=== PATIENT | male | born 2005 | race Caucasian/White ===

== ENCOUNTER 2025-07-03 21:10 | Emergency (ER) | payer OTHER ==
[~2025-07-03] VITALS: Ht 180.3 cm; Wt 83.9 kg
[2025-07-03 21:36] VITALS: BP 126/70; TEMP 98.4; O2SAT 98
[2025-07-03] MEDS ORDERED: HYDR-3972 PO (22:20)
[2025-07-03] MEDS ORDERED: HYDROCODONE/APAP 5/325MG TABLET ONE (22:22)
[2025-07-03] MEDS: HYDROCODONE/APAP 5/325MG TABLET PO ONE (22:24)
== END 2025-07-03 22:36 | disposition home or self-care (01) ==
LOC: ER 21:31
DX: S62.337A Displaced fracture of neck of fifth metacarpal bone, left hand, initial encounter for closed fracture (principal); S63.502A Unspecified sprain of left wrist, initial encounter; W22.01XA Walked into wall, initial encounter; Y93.89 Activity, other specified; Y92.89 Other specified places as the place of occurrence of the external cause; Y99.9 Unspecified external cause status
CPT/HCPCS: 73110; 73130-TC